=== PATIENT | female | born 1965 | race Asian ===

== ENCOUNTER 2017-05-22 08:36 | Day surgery (SDC) | payer OTHER ==
[2017-05-19 14:32] VITALS: BMI 29.9
[2017-05-22] MEDS ORDERED: PROPOFOL 20 ML ONE (10:01)
[2017-05-22 10:47] VITALS: TEMP 97.8
[2017-05-22 11:52] VITALS: BP 124/80; PULSE 68
--- NOTE | 2017-05-23 12:14 | PATH ---
Surgical Pathology Report Patient Name: MANSI VARELA [facility]. Rec. #: [id number] /Age/Gender: 1965 (Age: 52) / F Account: [id number] Location: U-ENDOSCOPY Taken: 05/22/2017 Received: 05/22/2017 Reported: 05/23/2017 Physicians: Brandyn Hassan M.D. Specimen(s) Received A: BX DUODENUM B: BX BODY AND ANTRUM Clinical History Preoperative diagnosis: Epigastric pain Postoperative diagnosis: Atrophic gastritis Final Diagnosis A. DUODENUM, SECOND PORTION/BULB, BIOPSY: DUODENAL MUCOSA WITHOUT SIGNIFICANT PATHOLOGIC FINDINGS. B. STOMACH, BODY/ANTRUM, BIOPSY: GASTRIC ANTRAL AND BODY MUCOSA WITH SEVERE CHRONIC ACTIVE GASTRITIS. IMMUNOHISTOCHEMICAL STAIN FOR H. PYLORI IS POSITIVE (NUMEROUS). Electronically Signed Niki Patel M.D. Gross Description A. Received in formalin, labeled "biopsy second portion of duodenum and duodenal bulb" are 3 benjamin, irregular portions of soft tissue ranging from 0.3-0.4 cm. in greatest dimension. The specimens are submitted in toto in one cassette. B. Received in formalin labeled "biopsy body/antrum," is a 0.8 x 0.6 x 0.2 cm aggregate of benjamin soft tissue fragments. The formalin is filtered and the specimen is entirely submitted in one cassette. 05/22/201705/22/2017
== END 2017-05-22 11:50 | disposition home or self-care (01) ==
LOC: JASU-ENDO 08:36
PROVIDERS: ATTEND Internal Medicine Gastroenterology
PROC: 0DB68ZX Excision of Stomach, Via Natural or Artificial Opening Endoscopic, Diagnostic (ICD-10-PCS; 2017-05-22)
PROC: 0DB98ZX Excision of Duodenum, Via Natural or Artificial Opening Endoscopic, Diagnostic (ICD-10-PCS; principal; 2017-05-22 09:00)
DX: B96.81 Helicobacter pylori [H. pylori] as the cause of diseases classified elsewhere (principal); K29.50 Unspecified chronic gastritis without bleeding
CPT/HCPCS: 88305-TC; 88342-TC

== ENCOUNTER 2018-02-25 22:27 | Emergency (ER) | payer OTHER ==
[2018-02-25 22:52] VITALS: BP 113/74; PULSE 79; TEMP 97.8; BMI 29.2
--- NOTE | 2018-02-25 23:19 | PDOC ---
History of Present Illness - General Chief Complaint: Injury Stated Complaint: KNEE SWELLING AND PAIN Time Seen by Provider: 02/25/18 22:54 - History of Present Illness Initial Comments: Solis Evans is a 52yo woman with a PMH of HTN who presents reporting an injury to the R knee two days ago. Her adult daughter is present to translate. Ms Evans reports that two days ago she was walking in her house when her right foot slipped slightly, and she had a twisting injury to her knee. She was able to walk immediately and denies falling or injury to any other part of her body. She reorts that she wrapped the knee, and her daughter rubbed it and applied Vics without improvement. She has additionally been taking naproxen 660mg every 6 hours at home without relief. Per her daughter, she has continued to walk and "refuses to rest" her leg at home. However, today she was in significant pain; her daughter states that she was crying from pain. Past History - Past Medical History Allergies/Adverse Reactions: Allergies Allergy/AdvReac Type Severity Reaction Status Date / Time No Known Allergies Allergy Verified 02/25/18 22:52 Home Medications: Ambulatory Orders Amlodipine Besylate [Norvasc -] 2.5 mg PO DAILY 05/19/17 Calcium Carbonate/Vitamin D3 [Calcium 600+D Softgel] 1 tab PO DAILY 05/19/17 COPD: No HTN: Yes - Suicide/Smoking/Psychosocial Hx Smoking History: Never smoked Have you smoked in the past 12 months: No Information on smoking cessation initiated: No Hx Alcohol Use: No Drug/Substance Use Hx: No Hx Substance Use Treatment: No Review of Systems - Review of Systems Comments:: General: No fevers, no chills, no weight or appetite change, no malaise HEENT: No changes in vision, no changes in hearing, no congestion, no sore throat CV: No chest pain, no palpitations, no LE edema Pulm: No SOB, no cough, no wheezing GI: No nausea or vomiting, no change in bowel habits, no melena : No frequency, no urgency, no dysuria Musc: No back pain. See HPI. Skin: No rash, no lesions, no erythema Endo: No excessive thirst, no heat/cold intolerance Heme: No unusual bruising or bleeding, no swollen glands Neuro: No syncope, no numbness/tingling, no focal weakness Vasc: No claudication Psych: No recent change in mood, no SI or HI *Physical Exam - Vital Signs Last Vital Signs Temp Pulse Resp BP Pulse Ox 97.8 F 79 16 113/74 100 02/25/18 22:50 02/25/18 22:50 02/25/18 22:50 02/25/18 22:50 02/25/18 22:50 - Physical Exam Comments: General: Comfortable, no acute distress HEENT: PERRL, EOMI, MMM, voice normal, normal neck ROM, no LAD Cards: RRR Pulm: Comfortable on room air Abd: Soft, nontender, nondistended Ext: RLE with TTP distal to knee, medial to patellar tendon. Strength 5/5 and equal to LLE at hip, knee, and ankle. No visible erythema or edema, no bruising , no lesions or abrasions. Sensation to light touch intact over knee and at distal RLE. Lateral movement of patella equal b/l. 2+ patellar reflexes b/l. Vasc: Extremities WWP. Palpable radial and pedal pulses bilaterally Skin: Normal color, no rashes or lesions Neuro: A&Ox3, CN grossly intact, normal speech, motor/sensory grossly intact and symmetric Psych: Mood appropriate to situation Moderate Sedation - Procedure Monitoring Vital Signs: Procedure Monitoring Vital Signs Temperature 97.8 F 02/25/18 22:50 Pulse Rate 79 02/25/18 22:50 Respiratory Rate 16 02/25/18 22:50 Blood Pressure 113/74 02/25/18 22:50 O2 Sat by Pulse Oximetry (%) 100 02/25/18 22:50 ED Treatment Course - RADIOLOGY Radiology Studies Ordered: Category Date Time Status KNEE 4 POS-RIGHT [RAD] Stat Radiology 02/25/18 23:11 Ordered Medical Decision Making - Medical Decision Making 02/25/18 23:19 Solis Evans is a 52yo woman with no relevant medical history who presents with a R knee twisting injury that occured two days ago. - Observed ambulating, able to bear weight with a slight limp. Unlikely to have a fracture. Xrays ordered to r/o definitively. - No visible injury or swelling - Discussed over-use of naproxen at length with the pt and her daughter. Explained that she needs to follow the dosing directions on the medication bottle. Will give 1 Percocet here for pain. - Will most likely d/c home with care instructions and ortho follow up 02/25/18 23:47 - Xrays w/o fracture - Wrapped knee with EVERETT. Applied ice pack - Discussed home care and follow up in detail. Both Ms Evans and her daughter state understanding. D/C home. Seen and discussed with Dr Downing. Areli Zarco PGY1 *DC/Admit/Observation/Transfer Diagnosis at time of Disposition: Knee pain, right Qualifiers: Chronicity: acute Qualified Code(s): M25.561 - Pain in right knee - Discharge Dispostion Condition at time of disposition: Stable Decision to Admit order: No - Referrals Referrals: Leonardo Horowitz MD [Staff Physician] - - Patient Instructions Printed Discharge Instructions: DI for Knee Pain Additional Instructions: Discharge Instructions: You were seen in the emergency department for right knee pain. You had xrays that showed that you do NOT have a fracture, so your pain is most likely due to a knee sprain or strain. Home Care: - Recommend rest, ice, compression and elevation at home: - Rest your leg when possible - Apply ice packs for 15-20 minutes every hour - Use a compression wrap such as an EVERETT bandage - Elevate your leg as much as possible. Place pillows under your leg when sleeping or sitting; ideally, your leg should be elevated above the level of your heart. - You may use NSAIDs such as ibuprofen (Advil or Motrin) or naproxen (Aleve), but you MUST follow the directions. - Ibuprofen (Advil or Motrin) - you may take 600mg (3 tablets) every 6-8 hours - Naproxen (Aleve) - you may take 440mg (2 tablets) every 12 hours - Take these medications with food as they can cause stomach upset or potentially stomach ulcers - Do NOT take more of these medications than indicated above - You have been given a knee immobilizer to help provide stability to your knee. Follow Up: - You have been referred to orthopedics for follow up. It is recommended that you call on Monday to make an appointment to be seen within the next week. - Seek medical care if you are unable to bear weight on your leg at all, your pain significantly worsens, you have severe swelling in your leg (e.g. it feels and looks tight and firm), or you develop numbness in your foot or lower leg. vira [facility]: aapako daahine ghutane ke dard ke lie aapaatakaaleen vibhaag mein dekha gaya saad. aapake paas xrays the daniel dikhaate oliver ki aapake paas phraikchar nahin darius , isalie ghutane ke mastishk ya tanaav ke kaaran aapaka dard sabase adhik sambhaavana darius. ghar blake dekhabhaal: - ghar par aaraam, barph, sampeedan aur unnayan blake siphaarish domingo: - jab sambhav ho to apane pair aaraam rg - john ghante 15-20 minat ke lie barph bill laagoo domingo - eseeee pattee jaise ek sampeedan lapeten ka prayog domingo - jitana sambhav ho sake apane pair ko badhaen. sone ya baithe samay apane pair ke neeche aria pace; aadarsh trevin mein, aapaka pair aapake dil ke star se oopar uthaaya jaana chaahie. - aap enaeebeeeds jaise ibuprophen (edavil ya motareen) ya naiproksen (elev) ka upayog mushtaq sakate oliver, lekin aapako dishaanirdeshon ka [facility]ension [facility]. - ibaprophen (edavil ya motareen) - aap john 6-8 ghante 600 miliyan (3 goliyaan) le sakate oliver - neproksen (elev) - aap john 12 ghante mein 440 mileegraam (2 goliyaan) le sakate oliver - in davaon ko bhojan ke saath elisabeth kyonki ve pet mein pareshaan ho sakate oliver ya sambhaavit trevin se pet ke alsar ho sakate oliver - oopar batae gae in davaon mein se adhik na elisabeth - aapako ghutane blake sthirata pradaan karane mein madad karane ke lie ghutane imobilaizar samira gaya darius. [facility]: - aapako pholo ap ke lie orthopediks ka ullekh crow gaya [facility]. yah anushansa blake [facility] ki aap agale saptaah ke bheetar niyukti karane ke lie somavaar ko toñito domingo. - lissy aap apane pair par rad kayden karane mein maria [facility], to alcirakitlorene roth blake [facility], aapaka dard kaaphee khara [facility], aapako apane pair mein talita phelps [facility] (udaaharan ke lie ya mahasjenna [facility] aur devine aur simeon [facility]), ya aap apane pair ya nichale pair mein alma bhardwaj [facility] . - Post Discharge Activity Forms/Work/School Notes: Back to Work
--- NOTE | 2018-02-25 23:46 | PDOC ---
Attending Attestation - HPI HPI: 02/25/18 23:47 The patient is a 52 year old female, with no significant past medical history, who presents to the emergency department with right knee pain after near fall with twisting of the right knee earlier today. She states she was walking when her knee twisted. She states she was able to stop herself from falling. She localizes pain to the anteromedial aspect of the right knee. She states she is able to ambulate without pain and without feeling weakness to the right extremity. She reportedly took Aleve today. She denies any other symptoms. The patient denies chest pain, shortness of breath, headache and dizziness. The patient denies fever, chills, nausea, vomit, diarrhea and constipation. The patient denies dysuria, frequency, urgency and hematuria. Allergies: NKDA - Physicial Exam PE: 02/25/18 23:47 GENERAL: Awake, alert, and fully oriented, in no acute distress HEAD: No signs of trauma EYES: PERRLA, EOMI, sclera anicteric, conjunctiva clear ENT: Auricles normal inspection, hearing grossly normal, nares patent, oropharynx clear without exudates. Moist mucosa NECK: Normal ROM, supple, no lymphadenopathy, JVD, or masses LUNGS: Breath sounds equal, clear to auscultation bilaterally. No wheezes, and no crackles HEART: Regular rate and rhythm, normal S1 and S2, no murmurs, rubs or gallops ABDOMEN: Soft, nontender, normoactive bowel sounds. No guarding, no rebound. No masses EXTREMITIES:(+) Right knee is midlly edematous with tenderness to palpation to the anterior medial aspect of the right knee at the proximal tibia. Normal range of motion, no edema. No clubbing or cyanosis. No cords, erythema NEUROLOGICAL: Cranial nerves II through XII grossly intact. Normal speech, normal gait SKIN: Warm, Dry, normal turgor, no rashes or lesions noted. - Medical Decision Making 02/25/18 23:48 Documentation prepared by Luciana London, acting as medical practice manager for Jaleesa Downing MD <Luciana London - Last Filed: 02/25/18 23:47> - Resident Resident Name: Areli Zarco - ED Attending Attestation I have performed the following: I have examined & evaluated the patient, The case was reviewed & discussed with the resident, I agree w/resident's findings & plan - Medical Decision Making 02/26/18 00:31 knee XR reveals no fractures. Slight swelling at the medial/distal aspect of the knee. Pt states that her knee doesn't feel like it is giving out, so we will not place her in a knee immobilizer, rather an carmelo wrap. She is ambulatory , and she is asking for a work note, as she spends entire days on her feet. <Jaleesa Downing - Last Filed: 02/26/18 00:32>
== END 2018-02-25 23:54 | disposition home or self-care (01) ==
LOC: JER 22:27
DX: M25.561 Pain in right knee (principal); X58.XXXA Exposure to other specified factors, initial encounter; Y93.89 Activity, other specified; Y92.89 Other specified places as the place of occurrence of the external cause; I10 Essential (primary) hypertension
CPT/HCPCS: 73564-TC-RT-FY; 99283-25

== ENCOUNTER 2019-05-22 06:55 | Inpatient (IN) | payer OTHER ==
[2019-05-14 12:06] VITALS: BMI 29.5
--- NOTE | 2019-05-22 07:39 | HP ---
History & Physical Update - History History: No Change - Physical Physical: No Change - Assessment Assessment: No Change - Plan Plan: No Change
[2019-05-22] MEDS ORDERED: MIDAZOLAM HCL 2 MG/2 ML SINGLE DOSE VIAL ONE ×4 (07:44→09:53)
[2019-05-22] MEDS ORDERED: BUPIVACAINE HCL/PF 0.5% (5 MG/ML) 30 ML VIAL IJ ONE (07:44)
[2019-05-22] MEDS ORDERED: BUPIVACAINE LIPOSOME/PF (EXPAREL) 266 MG/20 ML VIAL ONE (07:44)
[2019-05-22] MEDS ORDERED: PROPOFOL 20 ML ONE (08:29)
[2019-05-22] MEDS ORDERED: SUCCINYLCHOLINE CHLORIDE 200 MG/10 ML SYRINGE ONE (08:29)
[2019-05-22] MEDS ORDERED: EPHEDRINE SULFATE/0.9% NACL/PF 50 MG/10 ML SYRINGE NR ONE (08:30)
[2019-05-22] MEDS ORDERED: ONDANSETRON 4 MG/2 ML VIAL ONE (08:33)
[2019-05-22] MEDS ORDERED: TRANEXAMIC ACID 1000 MG/10 ML VIAL ONE (08:33)
[2019-05-22] MEDS ORDERED: DEXAMETHASONE SOD PHOSPHATE 4 MG/1 ML VIAL ONE (08:33)
[2019-05-22] MEDS ORDERED: ceFAZolin SODIUM 1 GM VIAL ONE (08:33)
[2019-05-22] MEDS ORDERED: ENOXAPARIN NA (PORCINE) 40 MG/0.4 ML DISP.SYRIN SQ SCH (10:00)
[2019-05-22] MEDS ORDERED: KETOROLAC TROMETHAMINE 60 MG/2 ML VIAL ONE (10:00)
[2019-05-22] MEDS ORDERED: MORPHINE SULFATE 10 MG/1 ML *VIAL ONE (10:01)
[2019-05-22] MEDS ORDERED: BUPIVACAINE HCL/PF 2.5 MG/ML - 30 ML VIAL IJ ONE ×2 (10:02→10:04)
[2019-05-22] MEDS ORDERED: MAGNESIUM HYDROX 2400MG/30ML ORAL SUSPENSION 30 ML CUP PO PRN (11:25)
[2019-05-22] MEDS ORDERED: ONDANSETRON 4 MG/2 ML VIAL IVPUSH PRN ×2 (11:25→11:36)
[2019-05-22] MEDS ORDERED: MAG HYDROX/AL HYDROX/SIMETH 30 ML UNIT-DOSE CUP PO PRN (11:25)
[2019-05-22] MEDS ORDERED: LACTATED RINGERS SOLUTION 1,000 ML IV SCH (11:30)
[2019-05-22] MEDS ORDERED: PROMETHAZINE HCL 25 MG/1 ML VIAL IVPUSH PRN (11:36)
[2019-05-22] MEDS ORDERED: oxyCODONE HCL 5 MG TABLET PO PRN (11:36)
[2019-05-22] MEDS ORDERED: ACETAMINOPHEN 325 MG TABLET (FP) PO SCH (11:45)
[2019-05-22] MEDS ORDERED: oxyCODONE HCL 10 MG SUSTAINED ACTING TABLET PO SCH (11:45)
--- NOTE | 2019-05-22 12:02 | HP ---
Ortho: Dr. Carlos Swartz HISTORY OF PRESENT ILLNESS: 54 year-old female with a PMH significant for HTN and osteoarthritis s/p right total knee replacement Avelino with Dr. Carlos Swartz on 05/22/2019. Recent Travel: PAST MEDICAL HISTORY: Hypertension Osteoarthritis PAST SURGICAL HISTORY: Hysterectomy 2014 Social History: lives with spouse and one son on third floor, climbs 3 flights of stairs without symptoms Smoking: never Alcohol: no Drugs: no Family history Father lung cancer; mother CAD; mother and brother DM Allergies No Known Drug Allergies Allergy (Verified 05/14/19 11:53) HOME MEDICATIONS: Home Medications Medication Instructions Recorded Amlodipine Besylate [Norvasc -] 2.5 mg PO DAILY 05/19/17 Cholecalciferol (Vitamin D3) 1,000 unit PO DAILY 05/14/19 [Vitamin D3 -] Multivitamins [Tab-A-Vit -] 1 tab PO DAILY 05/14/19 REVIEW OF SYSTEMS CONSTITUTIONAL: Absent: fever, chills, diaphoresis, generalized weakness, malaise, loss of appetite, weight change HEENT: Absent: rhinorrhea, nasal congestion, throat pain, throat swelling, difficulty swallowing, mouth swelling, ear pain, eye pain, visual changes CARDIOVASCULAR: Absent: chest pain, syncope, palpitations, irregular heart rate, lightheadedness , peripheral edema RESPIRATORY: Absent: cough, shortness of breath, dyspnea with exertion, orthopnea, wheezing, stridor, hemoptysis GASTROINTESTINAL: Absent: abdominal pain, abdominal distension, nausea, vomiting, diarrhea, constipation, melena, hematochezia GENITOURINARY: Absent: dysuria, frequency, urgency, hesitancy, hematuria, flank pain, genital pain MUSCULOSKELETAL: +surgical site pain Absent: myalgia, arthralgia, joint swelling, back pain, neck pain SKIN: Absent: rash, itching, pallor HEMATOLOGIC/IMMUNOLOGIC: Absent: easy bleeding, easy bruising, lymphadenopathy, frequent infections ENDOCRINE: Absent: unexplained weight gain, unexplained weight loss, heat intolerance, cold intolerance NEUROLOGIC: Absent: headache, focal weakness or paresthesias, dizziness, unsteady gait, seizure, mental status changes, bladder or bowel incontinence PSYCHIATRIC: Absent: anxiety, depression, suicidal or homicidal ideation, hallucinations. PHYSICAL EXAMINATION Vital Signs - 24 hr 05/22/19 05/22/19 05/22/19 07:14 11:25 11:30 Temperature 98.3 F 97.5 F L Pulse Rate 72 77 68 Respiratory 18 19 19 Rate Blood Pressure 142/92 96/59 L 96/55 L O2 Sat by Pulse 98 98 Oximetry (%) 05/22/19 05/22/19 05/22/19 11:35 11:40 11:55 Temperature Pulse Rate 68 62 65 Respiratory 19 19 19 Rate Blood Pressure 97/55 L 98/62 100/62 O2 Sat by Pulse 98 98 98 Oximetry (%) GENERAL: Awake, alert, and fully oriented, in no acute distress. HEAD: Normal with no signs of trauma. EYES: Pupils equal, round and reactive to light, extraocular movements intact, sclera anicteric, conjunctiva clear. LUNGS: Breath sounds equal, clear to auscultation bilaterally. No wheezes, and no crackles. No accessory muscle use. HEART: Regular rate and rhythm, normal S1 and S2 ABDOMEN: Soft, nontender, not distended RLE: Leg immobilizer, surgical dressings appear c/d/i, ice pack; +flex/extend toes, sensory intact NEUROLOGICAL: Cranial nerves II-XII intact. Normal speech. Pre op Hgb 13.4 BUN not available Cr not available Intra op Cefazolin 2g x 1 EBL <100cc's LR 900cc's ASSESSMENT/PLAN 54 year-old female with a PMH significant for HTN and osteoarthritis s/p Avelino right total knee replacement with Dr. Carlos Swartz on 05/22/2019. --POD #0 --perioperative antibiotics per surgery --pain management per surgery --protonix --bowel regimen --incentive spirometry Hypertension --BP stable --continue amlodipine FEN Fluids: LR@125mL/hr Electrolytes: replete as indicated Nutrition: regular diet DVT prophylaxis: OOB, ambulation, SCD, TEVIN on non-operative leg for now; start enoxaparin in am; continue enoxaparin until discharge, then ASA 325mg daily Physical therapy Dispo: continues to require inpatient care. Full code. Visit type - Emergency Visit Emergency Visit: No - New Patient This patient is new to me today: Yes Date on this admission: 05/22/19 - Critical Care Critical Care patient: No
[2019-05-22] MEDS: CEFAZOLIN 2 GM/D5W 2 GM/50 ML ML IVPB SCH (17:37)
[2019-05-22] MEDS: ACETAMINOPHEN 325 MG TABLET (FP) PO SCH (17:37)
--- NOTE | 2019-05-22 18:29 | OP ---
DATE OF OPERATION: 05/22/2019 ATTENDING SURGEON: Carlos Swartz MD INFRASTRUCTURE SECURITY ARCHITECT: TERE He PREOPERATIVE DIAGNOSIS: Severe osteoarthritis, right knee. POSTOPERATIVE DIAGNOSIS: Severe osteoarthritis, right knee. PROCEDURE: Right total knee arthroplasty with robotic assistance. ANESTHESIA: Regional and spinal. ESTIMATED BLOOD LOSS: Minimal. TOURNIQUET TIME: 102 minutes at 300 mmHg. IMPLANTS USED: Shilpa Triathlon cruciate-retaining size 3 femur, 3 tibia, and a 9-mm polyethylene and a 32-mm asymmetric patella. COMPLICATIONS: None. DISPOSITION: Stable to recovery room following procedure. INDICATIONS: This is a 54-year-old woman who has severe osteoarthritis of her right knee, primarily medial, but also patellofemoral and lateral. She had conservative treatment consisting of activity modifications, physical therapy, medications, injections, and she continues to have significant pain affecting her activities of daily life and wishes to proceed with an elective total knee arthroplasty. A thorough discussion of risks and benefits was had with the patient regarding this treatment, including infection, stiffness, recurrence of pain or persistence of pain, neurovascular injury, fracture, failure, possible wear and need for revision in the future. Preoperative planning was performed with a CT scan for MAKOplasty plan. DETAILS OF PROCEDURE: Patient was identified in the preoperative area. She underwent a regional block. She was taken to the operating room, sat up on the operating room table, and given a spinal anesthetic. She was then placed supine, and the right knee and lower extremity were prepped and draped in standard sterile fashion with a non-sterile tourniquet on the right thigh. She was given 2 g of Ancef IV and 1 g of tranexamic acid during incision and another during closure. The right knee and lower extremity were prepped and draped in standard sterile fashion with a non-sterile tourniquet on the right thigh. With the knee flexed, the 2 pins were placed on the femur for the femoral array and the 2 pins placed on the tibia for the tibial array. A midline incision was made, and a mid-vastus approach arthrotomy was performed to the knee joint. Some fat pad and excess synovium was excised. The femoral and tibial checkpoints were placed. The registration was performed for the robotic assistance. The osteophytes were removed, and the plan was checked. There was a slight modification of the plan for a well-balanced knee. The cuts were then made; distal and posterior chamfer cuts first and then changing the blade and then anterior, anterior chamfer, and posterior and tibial cuts were made. All excess bone was removed. She had no significant contracture preoperatively and a competent PCL, and so, a cruciate-retaining implant was chosen. Due to the absence of trial, the component itself was used as a trial on the femur prior to cementing. With the trial implants in place and the polyethylene trial, 9 mm, the knee came to full extension and was well balanced medial and laterally. Patella was prepared with a 32-mm asymmetric patella. With this in place, the knee was brought through range of motion, and the patella tracked well in the groove. The trial implants were removed, and the wound was copiously irrigated. Implants were cemented into place, tibia first, followed by femur, and then patella. A trial of 9-mm polyethylene was placed with the knee in extension while the cement cured after all excess cement was removed. The periarticular tissues were injected with the combination of saline, bupivacaine, Toradol, and morphine. The 9-mm polyethylene was placed and the locking mechanism engaged. The knee had good range of motion with a well-tracking patella and good varus and valgus stability. The tourniquet was let down prior to closing and after cementing, and there was no significant bleeding. The arthrotomy was closed with number 1 Vicryl suture. The main incision was closed with 2-0 Vicryl and andrei. The stab incisions for the arrays were closed with a nylon suture. Sterile dressings were applied. X-rays were taken in the room. She was placed in the knee immobilizer. She was then transferred to her bed and taken to the recovery room in stable condition. CARLOS SWARTZ M.D. [id number]
[2019-05-22] MEDS: SENNOSIDES/DOCUSATE COMBO (SENNA PLUS) TABLET (UD) PO SCH (21:32)
[2019-05-22] MEDS: GABAPENTIN 300 MG CAPSULE PO SCH (21:33)
[2019-05-23] MEDS: ACETAMINOPHEN 325 MG TABLET (FP) PO SCH ×3 (01:02→18:31)
[2019-05-23] MEDS: CEFAZOLIN 2 GM/D5W 2 GM/50 ML ML IVPB SCH (01:02)
[2019-05-23] MEDS: oxyCODONE HCL 5 MG TABLET PO PRN ×2 (08:10→16:45)
[2019-05-23] MEDS: ENOXAPARIN NA (PORCINE) 40 MG/0.4 ML DISP.SYRIN SQ SCH (08:10)
--- NOTE | 2019-05-23 08:15 | PN ---
Progress Note, Physician History of Present Illness: No compaints - Current Medication List Current Medications: Active Medications Acetaminophen (Tylenol -) 650 mg PO Q6H [facility] Stop: 05/25/19 18:29 Last Admin: 05/23/19 01:02 Dose: Not Given Documented by: Al Hydroxide/Mg Hydroxide (Mylanta Oral Suspension -) 30 ml PO Q4H PRN PRN Reason: DYSPEPSIA Amlodipine Besylate (Norvasc -) 2.5 mg PO DAILY [facility] Enoxaparin Sodium (Lovenox -) 40 mg SQ DAILY@0800 [facility] Gabapentin (Neurontin -) 300 mg PO BID [facility] Stop: 05/25/19 21:59 Last Admin: 05/22/19 21:33 Dose: 300 mg Documented by: Magnesium Hydroxide (Milk Of Magnesia -) 30 ml PO PRN PRN PRN Reason: CONSTIPATION Multivitamins/Minerals/Vitamin C (Tab-A-Vit -) 1 tab PO DAILY [facility] Ondansetron HCl (Zofran Injection) 4 mg IVPUSH Q6H PRN PRN Reason: NAUSEA Oxycodone HCl (Roxicodone -) 5 mg PO Q3H PRN PRN Reason: PAIN LEVEL 1-5 Oxycodone HCl (Roxicodone -) 10 mg PO Q3H PRN PRN Reason: PAIN LEVEL 6-10 Pantoprazole Sodium (Protonix -) 40 mg PO DAILY [facility] Senna/Docusate Sodium (Pericolace -) 2 tablet PO BID [facility] Last Admin: 05/22/19 21:32 Dose: 2 tablet Documented by: - Objective Vital Signs: Vital Signs Temperature 97.6 F 05/23/19 07:00 Pulse Rate 77 05/23/19 07:00 Respiratory Rate 18 05/23/19 07:00 Blood Pressure 129/75 05/23/19 07:00 O2 Sat by Pulse Oximetry (%) 97 05/23/19 07:00 Constitutional: Yes: No Distress Musculoskeletal: Yes: WNL, Other (She has pants on over her knee immobilizer. DNVI.) Problem List - Problems (1) Knee pain, right Code(s): M25.561 - PAIN IN RIGHT KNEE Qualifiers: Chronicity: acute Qualified Code(s): M25.561 - Pain in right knee (2) Pain Assessment/Plan: POD 1 R TKA PT/OT, DVT Prophylaxis Dispo plan Code(s): R52 - PAIN, UNSPECIFIED
[2019-05-23 09:00] LABS: HEMATOCRIT 32.9 % (32.4-45.2); HEMOGLOBIN 10.9 GM/dl (10.7-15.3); MCHC 33.3 g/dl (32.0-36.0); MEAN CELL VOLUME 84.3 fl (80-96); MEAN PLT VOLUME 11.2 fl (7.5-11.1); PLATELET COUNT 164 K/MM3 (134-434); RDW 13.9 % (11.6-15.6); WHITE BLOOD COUNT 9.7 K/mm3 (4.0-10.8)
[2019-05-23] MEDS: SENNOSIDES/DOCUSATE COMBO (SENNA PLUS) TABLET (UD) PO SCH ×2 (09:20→21:12)
[2019-05-23] MEDS: amLODIPine BESYLATE 2.5 MG TABLET (FP) PO SCH (09:20)
[2019-05-23] MEDS: PANTOPRAZOLE 40 MG TABLET PO SCH (09:20)
[2019-05-23] MEDS: MULTIVITAMINS (DAILY MVI) TABLET (FP) PO SCH (09:20)
--- NOTE | 2019-05-23 09:31 | PN ---
"Physical Exam: SUBJECTIVE: Patient seen and examined. Seen ambulating twice earlier today with PT. OBJECTIVE: Vital Signs Period Temp Pulse Resp BP Sys/Ang Pulse Ox Last 24 Hr 97.5 F-98.1 F 60-77 17-19 95-129/50-75 95-99 GENERAL: Awake, alert, and fully oriented, in no acute distress. HEAD: Normal with no signs of trauma. EYES: Pupils equal, round and reactive to light, extraocular movements intact, sclera anicteric, conjunctiva clear. LUNGS: Breath sounds equal, clear to auscultation bilaterally. No wheezes, and no crackles. No accessory muscle use. HEART: Regular rate and rhythm, normal S1 and S2 ABDOMEN: Soft, nontender, not distended RLE: Leg immobilizer, surgical dressings appear c/d/i, ice pack; +flex/extend toes, sensory intact NEUROLOGICAL: Cranial nerves II-XII intact. Normal speech. Active Medications Generic Name Dose Route Start Last Admin Trade Name Freq PRN Reason Stop Dose Admin Acetaminophen 650 mg 05/22/19 18:30 05/23/19 01:02 Tylenol - PO 05/25/19 18:29 Not Given Q6H NAE Al Hydroxide/Mg Hydroxide 30 ml 05/22/19 11:25 Mylanta Oral Suspension - PO Q4H PRN DYSPEPSIA Amlodipine Besylate 2.5 mg 05/23/19 10:00 05/23/19 09:20 Norvasc - PO 2.5 mg DAILY NAE Administration Enoxaparin Sodium 40 mg 05/23/19 08:00 05/23/19 08:10 Lovenox - SQ 40 mg DAILY@0800 NAE Administration Gabapentin 300 mg 05/22/19 22:00 05/22/19 21:33 Neurontin - PO 05/25/19 21:59 300 mg BID NAE Administration Magnesium Hydroxide 30 ml 05/22/19 11:25 Milk Of Magnesia - PO PRN PRN CONSTIPATION Multivitamins/Minerals/Vitamin C 1 tab 05/23/19 10:00 05/23/19 09:20 Tab-A-Vit - PO 1 tab DAILY NAE Administration Ondansetron HCl 4 mg 05/22/19 11:25 Zofran Injection IVPUSH Q6H PRN NAUSEA Oxycodone HCl 5 mg 05/22/19 11:36 Roxicodone - PO Q3H PRN PAIN LEVEL 1-5 Oxycodone HCl 10 mg 05/22/19 11:36 05/23/19 08:10 Roxicodone - PO 10 mg Q3H PRN Administration PAIN LEVEL 6-10 Pantoprazole Sodium 40 mg 05/23/19 10:00 05/23/19 09:20 Protonix - PO 40 mg DAILY NAE Administration Senna/Docusate Sodium 2 tablet 05/22/19 22:00 05/23/19 09:20 Pericolace - PO 2 tablet BID NAE Administration ASSESSMENT/PLAN: Pre op Hgb 13.4 BUN not available Cr not available Intra op Cefazolin 2g x 1 EBL <100cc's LR 900cc's ASSESSMENT/PLAN 54 year-old female with a PMH significant for HTN and osteoarthritis s/p Avelino right total knee replacement with Dr. Carlos Swartz on 05/22/2019. --POD #1 --perioperative antibiotics complete --pain management with PO Meds --protonix --bowel regimen --incentive spirometry Hypertension --BP stable --continue amlodipine FEN Fluids: PO intake adequate Electrolytes: replete as indicated Nutrition: regular diet DVT prophylaxis: subq lovenox, continue until discharge, then ASA 325mg daily Physical therapy Dispo: continues to require inpatient care. Full code. ISTOP The Drug Utilization Report below displays all of the controlled substance prescriptions, if any, that your patient has filled in the last twelve months. The information displayed on this report is compiled from pharmacy submissions to the Department, and accurately reflects the information as submitted by the pharmacies. This report was requested by: Anny Dewitt | Reference #: [id number] Others' Prescriptions Patient Name: Solis Evans Date: 1965 Address: [address] [place] [id number]: Female Rx Written Rx Dispensed Drug Quantity Days Supply Prescriber Name Payment Method Dispenser oxycodone-acetaminophen 5-325 mg tab 21 5 Fabricio Brannon MD [facility] * - Drugs marked with an asterisk are compound drugs. If the compound drug is made up of more than one controlled substance, then each controlled substance will be a separate row in the table. Visit type - Emergency Visit Emergency Visit: No - New Patient This patient is new to me today: No - Critical Care Critical Care patient: No"
[2019-05-23] MEDS ORDERED: CHOLECALCIFEROL (VIT D3) 1,000 UNIT (25 MCG) TABLET PO SCH (10:00)
--- NOTE | 2019-05-23 10:27 | PN ---
Progress Note (short form) - Note Progress Note: Anesthesia Post op/ Pain Pt seen and examined S:Alert and awake comfortable O: Vital Signs Temperature 97.6 F 05/23/19 07:00 Pulse Rate 77 05/23/19 07:00 Respiratory Rate 18 05/23/19 07:00 Blood Pressure 129/75 05/23/19 07:00 O2 Sat by Pulse Oximetry (%) 97 05/23/19 07:00 A/P s/p tight total knee replacement Doing well post op Continue current care Osvaldo Draper MD
[2019-05-23] MEDS: GABAPENTIN 300 MG CAPSULE PO SCH ×2 (12:26→21:12)
[2019-05-23 12:52] LABS: CALCIUM 8.6 mg/dl (8.5-10); CREATININE 0.9 mg/dl (0.55-1.3); MAGNESIUM 1.9 mg/dL (1.8-2.4); POTASSIUM 3.5 mmol/L (3.5-5.1)
[2019-05-24] MEDS: ACETAMINOPHEN 325 MG TABLET (FP) PO SCH ×2 (06:14)
[2019-05-24 07:48] LABS: HEMOGLOBIN 10.6 GM/dl (10.7-15.3); MCHC 33.2 g/dl (32.0-36.0); MEAN CELL VOLUME 84.4 fl (80-96); MEAN PLT VOLUME 11.4 fl (7.5-11.1); PLATELET COUNT 141 K/MM3 (134-434); RDW 13.5 % (11.6-15.6); WHITE BLOOD COUNT 7.3 K/mm3 (4.0-10.8)
[2019-05-24] MEDS: oxyCODONE HCL 5 MG TABLET PO PRN (08:46)
[2019-05-24] MEDS: ENOXAPARIN NA (PORCINE) 40 MG/0.4 ML DISP.SYRIN SQ SCH (08:46)
--- NOTE | 2019-05-24 08:51 | DS ---
Physical Exam: SUBJECTIVE: Patient seen and examined. Seen ambulating several times with PT, slow, steady gait. OBJECTIVE: Vital Signs Period Temp Pulse Resp BP Sys/Ang Pulse Ox Last 24 Hr 98.7 F-100.7 F 78-93 16-18 100-121/58-75 93-97 PHYSICAL EXAM GENERAL: Awake, alert, and fully oriented, in no acute distress. HEAD: Normal with no signs of trauma. EYES: Pupils equal, round and reactive to light, extraocular movements intact, sclera anicteric, conjunctiva clear. LUNGS: Breath sounds equal, clear to auscultation bilaterally. No wheezes, and no crackles. No accessory muscle use. HEART: Regular rate and rhythm, normal S1 and S2 ABDOMEN: Soft, nontender, not distended RLE: Surgical dressings appear c/d/i, ice pack; +flex/extend toes, sensory intact NEUROLOGICAL: Cranial nerves II-XII intact. Normal speech. LABS Laboratory Results - last 24 hr 05/23/19 05/23/19 05/24/19 06:50 06:50 06:55 WBC 9.7 7.3 RBC 3.90 3.80 Hgb 10.9 10.6 L Hct 32.9 32.0 L MCV 84.3 84.4 MCH 28.0 28.0 MCHC 33.3 33.2 RDW 13.9 13.5 Plt Count 164 141 MPV 11.2 H 11.4 H Sodium 138 Potassium 3.5 Chloride 104 Carbon Dioxide 27 Anion Gap 7 L BUN 15.0 Creatinine 0.9 Est GFR (CKD-EPI)AfAm 82.84 Est GFR (CKD-EPI)NonAf 71.48 Random Glucose 117 H Calcium 8.6 Magnesium 1.9 HOSPITAL COURSE: Date of Admission:05/22/19 Date of Discharge: 05/24/19 Pre op Hgb 13.4 BUN not available Cr not available Intra op Cefazolin 2g x 1 EBL <100cc's LR 900cc's ASSESSMENT/PLAN 54 year-old female with a PMH significant for HTN and osteoarthritis s/p Avelino right total knee replacement with Dr. Carlos Swartz on 05/22/2019. --perioperative antibiotics complete --pain well-managed with PO meds --DVT prophylaxis while inpatient with subq lovenox, start ASA 325mg daily on discharge Hypertension --BP stable --continued amlodipine Minutes to complete discharge: 35 Discharge Summary Problems reviewed: Yes Reason For Visit: RIGHT KNEE OSTEOARTHRITIS Condition: Stable - Instructions Diet, Activity, Other Instructions: It is very important you take aspirin 325mg EVERY DAY. A prescription has been sent to your pharmacy. If your insurance does not cover aspirin, buy it over the counter. A prescription has also been sent to your pharmacy for oxycodone, pain medication. Take as directed. You need to be seen by your surgeon Dr. Swartz in seven (7) days. His office number is [phone]. Keep your surgical dressing clean and dry at all times. You may shower but must keep the dressing dry. Referrals: Carlos Swartz MD [Staff Physician] - Disposition: VNS/HOME HEALTH CARE - Home Medications Comprehensive Discharge Medication List: Ambulatory Orders Amlodipine Besylate [Norvasc -] 2.5 mg PO DAILY 05/19/17 Cholecalciferol (Vitamin D3) [Vitamin D3 -] 1,000 unit PO DAILY 05/14/19 Multivitamins [Tab-A-Vit -] 1 tab PO DAILY 05/14/19 This patient is new to me today: No Emergency Visit: Yes ED Registration Date: 05/22/19 Care time: The patient presented to the Emergency Department on the above date and was hospitalized for further evaluation of their emergent condition. Critical Care patient: No - Discharge Referral Referred to [facility] No
[2019-05-24] MEDS ORDERED: ASPIRIN 325 MG ENTERIC COATED TABLET (FP) PO ONE (09:15)
[2019-05-24] MEDS: SENNOSIDES/DOCUSATE COMBO (SENNA PLUS) TABLET (UD) PO SCH (09:43)
[2019-05-24] MEDS: PANTOPRAZOLE 40 MG TABLET PO SCH (09:43)
[2019-05-24] MEDS: MULTIVITAMINS (DAILY MVI) TABLET (FP) PO SCH (09:43)
[2019-05-24] MEDS: GABAPENTIN 300 MG CAPSULE PO SCH (09:43)
[2019-05-24] MEDS: amLODIPine BESYLATE 2.5 MG TABLET (FP) PO SCH (09:43)
[2019-05-24 12:03] VITALS: BP 116/68; PULSE 72; TEMP 98.6
--- NOTE | 2019-05-24 16:30 | PATH ---
Surgical Pathology Report Patient Name: MANSI VARELA Med. Rec. #: [id number] /Age/Gender: 1965 (Age: 54) / F Account: [id number] Location: [facility] MED-SURG Taken: 05/22/2019 Received: 05/22/2019 Reported: 05/24/2019 Physicians: Carlos Swartz M.D. Specimen(s) Received BONES RIGHT KNEE Clinical History Osteoarthritis right knee Final Diagnosis BONES, RIGHT KNEE, TOTAL KNEE REPLACEMENT: DEGENERATIVE JOINT DISEASE. Electronically Signed Anastasia Barraza M.D. Gross Description Received in formalin labeled "bone right knee," is an 11.0 x 8.5 x 1.5 cm aggregate of multiple portions of bone and soft tissue, consistent with knee bones. There are multiple areas of eburnation present, measuring up to 1.8 cm in greatest dimension. The remaining articular surfaces are benjamin-yellow and focally granular. The underlying trabecular bone is yellow and hard. [employer] Sander sections are submitted in one cassette, following decalcification. [facility]
== END 2019-05-24 11:55 | disposition home health service (06) | DRG 302 ==
LOC: FM/S 06:55
PROVIDERS: ADMIT Orthopaedic Surgery; ATTEND Nurse Practitioner Acute Care
PROC: 8E0Y0CZ Robotic Assisted Procedure of Lower Extremity, Open Approach (ICD-10-PCS; 2019-05-22)
PROC: 0SRC069 Replacement of Right Knee Joint with Oxidized Zirconium on Polyethylene Synthetic Substitute, Cemented, Open Approach (ICD-10-PCS; principal; 2019-05-22 08:53)
DX: M17.11 Unilateral primary osteoarthritis, right knee (principal); I10 Essential (primary) hypertension
CPT/HCPCS: 36415; 73560-TC-RT-FY; 80048; 83735; 85027; 88304-TC; 88311-TC; 94760; 97116-GP; 97163-GP